=== PATIENT | male | born 1975 ===

== ENCOUNTER 2021-02-27 13:47 | Inpatient (IN) ==
[2021-02-27] MEDS ORDERED: Al Hydrox/Mg Hydrox/Simet LIQ 30 ML UDC PO PRN (16:23)
[2021-02-27] MEDS ORDERED: diPHENhydraMINE IV 50 MG/ML 1 ml VIAL (BENADRYL) ONE (19:16)
[2021-02-27] MEDS ORDERED: LORazepam 2 mg VIAL 1 ml ONE (19:16)
[2021-02-27] MEDS ORDERED: Haloperidol 5 mg/ml SDV IV/IM 5 MG/ML AMP ONE (19:16)
[2021-02-27] MEDS: CMCS: Lithium Carb ER 300 mg TAB(NF) PO SCH (19:42)
[2021-02-27] MEDS ORDERED: diPHENhydraMINE IV 50 MG/ML 1 ml VIAL (BENADRYL) IM ONE (20:00)
[2021-02-27] MEDS ORDERED: Haloperidol 5 mg/ml SDV IV/IM 5 MG/ML AMP IM ONE (20:00)
[2021-02-27] MEDS ORDERED: LORazepam 2 mg VIAL 1 ml IM ONE (20:00)
[2021-02-28 08:21] LABS: HDL Cholesterol 53.1 mg/dL
[2021-02-28] MEDS ORDERED: OLANzapine 5 mg TAB*ODT PO PRN (11:22)
[2021-02-28] MEDS: CMCS: Lithium Carb ER 300 mg TAB(NF) PO SCH (20:52)
[2021-02-28] MEDS ORDERED: OLANzapine 5 mg TAB*ODT PO SCH (21:00)
[2021-03-01 08:39] LABS: Lithium 0.41 mmol/L (0.6-1.2)
[2021-03-01] MEDS: CMCS: Lithium Carb ER 300 mg TAB(NF) PO SCH (20:33)
[2021-03-02 21:10] LABS: ALT 35 U/L (7-52); AST 31 U/L (13-39); Albumin 4.1 g/dL (3.2-5.2); Albumin/Globulin Ratio 1.5 (1-3); Alkaline Phosphatase 68 U/L (35-149); Anion Gap 4 mmol/L (2-11); Blood Urea Nitrogen 22 mg/dL (6-24); CO2 Carbon Dioxide 29 mmol/L (22-32); Calcium 9.6 mg/dL (8.6-10.3); Chloride 104 mmol/L (101-111); Globulin 2.8 g/dL (2-4); Glucose 96 mg/dL (70-100); Potassium 4.3 mmol/L (3.5-5.0); Sodium 137 mmol/L (135-145); Total Protein 6.9 g/dL (6.4-8.9); eGFR CKD-EPI 73.1 (>60)
[2021-03-02 21:12] LABS: Lithium 0.37 mmol/L (0.6-1.2)
[2021-03-02] MEDS: CMCS: Lithium Carb ER 300 mg TAB(NF) PO SCH (21:59)
[2021-03-03] MEDS ORDERED: Haloperidol LIQ 10 MG/5 ML UDC PO PRN (07:51)
[2021-03-03] MEDS ORDERED: HALOPERIDOL 2 MG/ML PO PRN (08:01)
[2021-03-03] MEDS ORDERED: Haloperidol LIQ ORALSYR 2 MG/ML PO PRN (11:08)
[2021-03-03] MEDS: CMCS: Lithium Carb ER 300 mg TAB(NF) PO SCH (20:33)
[2021-03-04] MEDS: CMCS: Lithium Carb ER 300 mg TAB(NF) PO SCH (21:00)
[2021-03-05 10:36] LABS: Calcium 9.9 mg/dL (8.6-10.3); Potassium 4.2 mmol/L (3.5-5.0); eGFR CKD-EPI 94.6 (>60)
[2021-03-05 11:26] LABS: Lithium 0.78 mmol/L (0.6-1.2)
[2021-03-05] MEDS: CMCS: Lithium Carb ER 300 mg TAB(NF) PO SCH (22:48)
[2021-03-06] MEDS: CMCS: Lithium Carb ER 300 mg TAB(NF) PO SCH (22:34)
[2021-03-07] MEDS ORDERED: Lithium Carb ER 300 mg TAB(NF) PO SCH (21:00)
[2021-03-07] MEDS: Lithium Carb ER 300 mg TAB(NF) PO SCH (22:21)
[2021-03-08] MEDS: Lithium Carb ER 300 mg TAB(NF) PO SCH (21:50)
[2021-03-09] MEDS: Lithium Carb ER 300 mg TAB(NF) PO SCH (22:02)
[2021-03-10] MEDS ORDERED: Nicotine GUM 2MG FRUIT FLAVOR PO PRN (17:30)
[2021-03-10] MEDS: Lithium Carb ER 300 mg TAB(NF) PO SCH (22:06)
[2021-03-11] MEDS ORDERED: Nicotine PATCH 21 MG/24 HR PATCH TRANSDERM SCH (09:00)
[2021-03-11] MEDS: Lithium Carb ER 300 mg TAB(NF) PO SCH (22:29)
[2021-03-12] MEDS: Lithium Carb ER 300 mg TAB(NF) PO SCH (22:19)
[2021-03-13] MEDS: Lithium Carb ER 300 mg TAB(NF) PO SCH (20:14)
[2021-03-14 20:40] LABS: Albumin 4.2 g/dL (3.2-5.2); Albumin/Globulin Ratio 1.4 (1-3); Calcium 9.7 mg/dL (8.6-10.3); Globulin 2.9 g/dL (2-4); Potassium 4.2 mmol/L (3.5-5.0); Total Bilirubin 0.3 mg/dL (0.2-1.0); Total Protein 7.1 g/dL (6.4-8.9); eGFR CKD-EPI 72.4 (>60)
[2021-03-14 20:57] LABS: Lithium 0.46 mmol/L (0.6-1.2)
[2021-03-14] MEDS: Lithium Carb ER 300 mg TAB(NF) PO SCH (21:13)
[2021-03-15] MEDS: Lithium Carb ER 300 mg TAB(NF) PO SCH (21:07)
[2021-03-16 09:41] LABS: Calcium 9.9 mg/dL (8.6-10.3); eGFR CKD-EPI 100.6 (>60)
[2021-03-16 10:06] LABS: Lithium 0.82 mmol/L (0.6-1.2)
== END 2021-03-16 12:28 | disposition home or self-care (01) | DRG 753 ==
LOC: BSU 16:23
PROVIDERS: ADMIT Psychiatry & Neurology Psychiatry; ATTEND Psychiatry & Neurology Psychiatry